=== PATIENT | female | born 1960 | race Caucasian/White ===

== ENCOUNTER 2016-08-07 09:56 | Inpatient (IN) ==
[2016-08-07] MEDS ORDERED: NITROGLYCERIN SL PRN (10:08)
[2016-08-07] MEDS ORDERED: ASPIRIN PO STA (10:08)
--- NOTE | 2016-08-07 10:33 | ED EKG INTERP ---
EKG Interpretation - EKG Time of EKG reading by physician:: 10:07 EKG Read and Signed by:: Emerson Hutchinson EKG Interpretation (*Must complete 3 of following elements*): Abnormal Rate: 105 Rhythm: sinus tachycardia with frequent premature ventricular complexes Comments: otherwise normal ECG Attestation - Scribe Verification/Attestation Scribe:: Tory Baxter Acting as Scribe for:: Emerson Hutchinson Scribe documention review:: This chart was documented by a scribe and accurately reflects the service the provider performed and the decisions made by the provider.
--- NOTE | 2016-08-07 11:15 | Diag Imaging Result Document ---
PROCEDURE NAME: CHEST-2 VIEWS - 08/07/2016 CHEST X-RAY 2 VIEWS, 08/07/2016: COMPARISON: 09/19/2015. FINDINGS: The lungs are normally expanded and clear. Heart size and mediastinal contours are normal. No pneumothorax or pleural effusion. IMPRESSION: Negative exam.
[2016-08-07 11:28] LABS: MANUAL DIFF NEEDED? NO
[2016-08-07 11:31] LABS: BASO% 0.6 % (0.0-0.8); EOS% 2.3 % (0.0-10.0); HEMATOCRIT 49.2 % (37.0-47.0); HEMOGLOBIN 16.8 g/dL (12.0-16.0); IMM GRAN# 0.18 X1000 (0.0-0.04); LYMPH# 4.22 X1000 (1.2-3.4); LYMPH% 23.8 % (20.5-51.1); MCH 33.2 PG (27-31); MCHC 34.1 g/dL (33-37); MCV 97.2 FL (81-99); MONO# 2.04 X1000 (0.11-0.59); MONO% 11.5 % (1.7-9.3); MPV 11.2 FL (7.4-10.4); NEUT% 60.8 % (42.2-75.2); PLT 393 X1000 (130-400); RBC 5.06 XMIL (4.2-5.4)
[2016-08-07] MEDS ORDERED: NS 1,000 ML IV ONE (11:35)
--- NOTE | 2016-08-07 11:50 | PROVIDER DOCUMENTATION ---
HPI-Syncope/Dizziness - General Chief Complaint: Chest Pain Stated Complaint: abnormal ekg Time Seen by Provider: 08/07/16 10:24 Source: patient Allergies/Adverse Reactions: Patient Allergies Allergy/AdvReac Type Severity Reaction Status Date / Time Sulfa (Sulfonamide Allergy Severe ANAPHYLAXIS Verified 08/07/16 11:36 Antibiotics) adhesive Allergy HIVES Verified 08/07/16 11:36 codeine Allergy halucinatio Verified 08/07/16 11:36 ns erythromycin base Allergy Unknown Verified 08/07/16 11:36 red dye Allergy Unknown Verified 08/07/16 11:36 iron dextran complex AdvReac Intermediate ITCHING Verified 08/07/16 11:36 [From Infed] Home Medications: Home Medication List Medication Instructions Recorded Confirmed Last Taken Type Levothyroxine [Synthroid] 175 microgm PO DAILY 06/05/12 08/07/16 09/19/15 History Trazodone [Desyrel] 150 mg PO QHS 06/05/12 08/07/16 09/18/15 History Hydrocodone/Acetaminophen [[place] 1 each PO BID PRN PRN 07/18/14 08/07/16 History 10-325 Tablet] Triamterene/Hctz [Dyazide] 1 each PO DAILY 09/19/15 08/07/16 09/18/15 History Ondansetron [Zofran Odt] 4 mg PO Q8H PRN PRN #20 tab.rapdis 06/17/16 08/07/16 Unknown Rx Clonazepam 0.5 mg PO BID 08/07/16 08/07/16 Unknown History Metaxalone [Metaxall] 800 mg PO DAILY 08/07/16 08/07/16 Unknown History - History of Present Illness-Syncope/Dizzy Nature of Presenting Problem: 56 y/o F with history of Menier's disease, heart palpitations, hiatal hernia, ventral hernia, hypogammaglobulinemia presents with lightheadedness, palpitations, and chest pain intermittently x 4 days. She describes chest pain as constant dull ache on the left side of the chest and under left breast that is worse when she feels palpitations. She also reports left jaw pain, nausea and diaphoresis intermittently. She has felt similar pain in the past which she has attributed to hiatal hernia. She began feeling weak and as if she was going to pass out on Friday while at work. She has chronic vertigo secondary to Meniere's disease but states this feels different. Symptoms are worse with exertion. She checked her HR and found it to range between 35 and 178. She has a history of palpitations and irregular heart rhythms and has been on tenormin in the past. Symptoms continued this morning which prompted her ER visit. She has had a cardiac cath years ago by Dr. Martin. She is unsure if stents were placed. She states she had a normal stress test around the same time. Her hypogammaglobulinemia is followed by her burrer hand, Dr. Christopher. She states her WBC is always around 17-18. Prior Episodes: reports: no prior history Timing: reports: still present Position/Activity at time of episode: reports: activity Loss of Consciousness: no loss of consciousness Current Symptoms: reports: chest pain, lightheaded Recently Seen Here or By Another Healthcare Provider: No - Dizziness Dizziness Related Current/Associated Symptoms: reports: lightheaded Review of Systems - Adult - REVIEW OF SYSTEMS - ADULT Constitutional: reports: no symptoms reported. denies: chills, fever Eyes: reports: no symptoms reported. denies: decreased vision, blurred vision, double vision Ears, Nose, Mouth & Throat: reports: no symptoms reported Cardiovascular: reports: see HPI Respiratory: reports: no symptoms reported. denies: cough, shortness of breath , wheezing Gastrointestinal: reports: nausea. denies: abdominal pain Genitourinary: reports: no symptoms reported. denies: dysuria, hematuria Musculoskeletal: reports: no symptoms reported. denies: muscle aches, neck pain Integumentary: reports: no symptoms reported. denies: itching, rash Neurological: reports: dizziness/vertigo (chronic secondary to meniere's). denies: headache/migraines, loss of balance, numbness, seizure, slurred speech, syncope, tremors Psychiatric: reports: no symptoms reported Endocrine: reports: no symptoms reported Hematologic/Lymphatic: reports: no symptoms reported Allergic/Immunologic: reports: no symptoms reported All Other Systems: Reviewed and Negative Past History - Adult - PAST MEDICAL HISTORY-ADULT Review of Records: reports: Nursing Assessment Review, Medications Reviewed Major Childhood Illnesses: reports: denies history Cardiovascular: reports: HTN Respiratory: reports: asthma Endocrine/Immune: reports: thyroid disorder - PRIOR SURGERIES/PROCEDURES Surgical/Procedure History: reports: cholecystectomy - IMMUNIZATION STATUS Childhood Immunizations: See Nurse Assessment Flu Vaccine: See Nurse Assessment Physical Exam-General - PHYSICAL EXAM-ADULT Initial Vital Signs Reviewed: Yes - CONSTITUTIONAL General Appearance: appears well, alert, no apparent distress - EYES Eyes: PERRL/EOMI, pink conjunctivae - HEAD, EARS, NOSE, MOUTH & THROAT HENMT: normocephalic/atraumatic, moist mucous membranes, normal ENT inspection - NECK Neck: non-tender, full range of motion, supple - RESPIRATORY Respiratory: chest non-tender, lungs clear, normal breath sounds, no pleuratic chest pain, no respiratory distress, no accessory muscle use - CARDIOVASCULAR Cardiovascular: normal peripheral pulses, regular rate, rhythm, no edema, no gallop, no JVD, no murmur - GASTROINTESTINAL (ABDOMEN) Abdominal Exam: normal bowel sounds, non tender, soft, other (ventral hernia) - LYMPHATIC Lymphatic: no adenopathy - MUSCULOSKELETAL Back Exam: normal inspection, no CVA tenderness, no vertebral tenderness Extremity: normal range of motion, non-tender, normal inspection - SKIN Integumentary: normal color, normal turgor, warm/dry - NEUROLOGIC Neurologic: grossly normal, no motor/sensory deficits - PSYCHIATRIC Psych/Mental Status: normal mood/affect, normal thought content, normal thought process, oriented x 3 Progress - PLAN OF CARE/RESULTS Progress/Plan/Lab Results: Laboratory Tests 08/07/16 08/07/16 08/07/16 11:20 11:20 11:20 WBC 17.71 H RBC 5.06 Hgb 16.8 H Hct 49.2 H MCV 97.2 MCH 33.2 H MCHC 34.1 RDW Std Deviation 14.2 Plt Count 393 MPV 11.2 H Immature Gran % (Auto) 1.0 H Neut % (Auto) 60.8 Lymph % (Auto) 23.8 Evangeline % (Auto) 11.5 H Eos % (Auto) 2.3 Baso % (Auto) 0.6 Immature Gran # (Auto) 0.18 H Neut # (Auto) 10.76 H Lymph # (Auto) 4.22 H Evangeline # (Auto) 2.04 H Eos # (Auto) 0.40 Baso # (Auto) 0.11 PT INR PTT (Actin FS) D-Dimer 0.42 Sodium 140 Potassium 4.2 Chloride 100 Carbon Dioxide 30 Anion Gap 10 BUN 11 Creatinine 0.8 Estimated GFR/1.73 m2 > 60 BUN/Creatinine Ratio 14 Glucose 123 H Calculated Osmolality 280 Calcium 10.2 Magnesium 2.1 Total Bilirubin 0.71 AST 26 ALT 25 Alkaline Phosphatase 130 H Creatine Kinase 63 Troponin T Ltx-N-Foiiedeklkb Pept Total Protein 8.3 Albumin 4.0 Globulin 4.3 Albumin/Globulin Ratio 0.9 TSH Free T4 08/07/16 08/07/16 08/07/16 11:20 11:20 11:20 WBC RBC Hgb Hct MCV MCH MCHC RDW Std Deviation Plt Count MPV Immature Gran % (Auto) Neut % (Auto) Lymph % (Auto) Evangeline % (Auto) Eos % (Auto) Baso % (Auto) Immature Gran # (Auto) Neut # (Auto) Lymph # (Auto) Evangeline # (Auto) Eos # (Auto) Baso # (Auto) PT 10.2 INR 1.00 PTT (Actin FS) 23.6 D-Dimer Sodium Potassium Chloride Carbon Dioxide Anion Gap BUN Creatinine Estimated GFR/1.73 m2 BUN/Creatinine Ratio Glucose Calculated Osmolality Calcium Magnesium Total Bilirubin AST ALT Alkaline Phosphatase Creatine Kinase Troponin T < 0.010 Wbt-G-Lvhevsspqxd Pept 19 Total Protein Albumin Globulin Albumin/Globulin Ratio TSH Free T4 08/07/16 11:20 WBC RBC Hgb Hct MCV MCH MCHC RDW Std Deviation Plt Count MPV Immature Gran % (Auto) Neut % (Auto) Lymph % (Auto) Evangeline % (Auto) Eos % (Auto) Baso % (Auto) Immature Gran # (Auto) Neut # (Auto) Lymph # (Auto) Evangeline # (Auto) Eos # (Auto) Baso # (Auto) PT INR PTT (Actin FS) D-Dimer Sodium Potassium Chloride Carbon Dioxide Anion Gap BUN Creatinine Estimated GFR/1.73 m2 BUN/Creatinine Ratio Glucose Calculated Osmolality Calcium Magnesium Total Bilirubin AST ALT Alkaline Phosphatase Creatine Kinase Troponin T Aqd-I-Qfridhupllg Pept Total Protein Albumin Globulin Albumin/Globulin Ratio TSH 1.79 Free T4 1.27 Orders Category Date Time Status Cardiac Monitoring DIRECTED Care 08/07/16 10:08 Active Orthostatic Vital Signs NOW Care 08/07/16 11:30 Active Saline Loc NOW Care 08/07/16 10:08 Active CHEST-2 VIEWS [RAD] Stat Exams 08/07/16 10:08 Completed CBC WITH ELECTRONIC DIFF [HEME] Stat Lab 08/07/16 11:20 Completed CK PROFILE [SP CHEM] Stat Lab 08/07/16 11:20 Completed COMPREHENSIVE METABOLIC PANEL [CHEM] Stat Lab 08/07/16 11:20 Completed D-DIMER [CHEM] Stat Lab 08/07/16 11:20 Completed FREE T4 Stat Lab 08/07/16 11:20 Completed MAGNESIUM [CHEM] Stat Lab 08/07/16 11:20 Completed PRO B-NATRIURETIC PEPTIDE Stat Lab 08/07/16 11:20 Completed PROTIME WITH INR [COAG] Stat Lab 08/07/16 11:20 Completed PTT [COAG] Stat Lab 08/07/16 11:20 Completed TROPONIN T Stat Lab 08/07/16 11:20 Completed TSH Stat Lab 08/07/16 11:20 Completed 0.9% Sodium Chloride Inj [Ns] 1,000 ml Med 08/07/16 11:35 Discontinued IV 999 mls/hr Aspirin Med 08/07/16 10:08 Discontinued 325 mg PO STAT STA Nitroglycerin Sl [Nitroglycerin] Med 08/07/16 10:08 Active 0.4 mg SL Q5M PRN PRN EKG [EKG] Stat Ther 08/07/16 10:01 Ordered EKG [EKG] Stat Ther 08/07/16 10:08 Ordered Vital Signs Temp Pulse Pulse Pulse Pulse Resp BP 08/07/16 14:10 94 H 20 120/63 08/07/16 12:32 96 H 93 H 89 08/07/16 10:02 98.3 F 105 H 16 119/61 BP BP BP Pulse Ox 08/07/16 14:10 95 08/07/16 12:32 134/57 126/83 117/72 08/07/16 10:02 100 Sulfa (Sulfonamide Antibiotics) Allergy (Severe, Verified 08/07/16 11:36) ANAPHYLAXIS adhesive Allergy (Verified 08/07/16 11:36) HIVES tape causes rash codeine Allergy (Verified 08/07/16 11:36) halucinations erythromycin base Allergy (Verified 08/07/16 11:36) Unknown red dye Allergy (Verified 08/07/16 11:36) Unknown iron dextran complex [From Infed] Adverse Reaction (Intermediate, Verified 08/07 11:36) ITCHING Levothyroxine [Synthroid] 175 microgm PO DAILY 06/05/12 Trazodone [Desyrel] 150 mg PO QHS 06/05/12 Hydrocodone/Acetaminophen [[place] 10-325 Tablet] 1 each PO BID PRN PRN 07/18/14 Triamterene/Hctz [Dyazide] 1 each PO DAILY 09/19/15 Ondansetron [Zofran Odt] 4 mg PO Q8H PRN PRN #20 tab.rapdis 06/17/16 Clonazepam 0.5 mg PO BID 08/07/16 Metaxalone [Metaxall] 800 mg PO DAILY 08/07/16 Laboratory 08/07/16 08/07/16 08/07/16 11:20 11:20 11:20 WBC RBC Hgb Hct MCV MCH MCHC RDW Std Deviation Plt Count MPV Immature Gran % (Auto) Neut % (Auto) Lymph % (Auto) Evangeline % (Auto) Eos % (Auto) Baso % (Auto) Immature Gran # (Auto) Neut # (Auto) Lymph # (Auto) Evangeline # (Auto) Eos # (Auto) Baso # (Auto) PT 10.2 INR 1.00 PTT (Actin FS) 23.6 D-Dimer Sodium Potassium Chloride Carbon Dioxide Anion Gap BUN Creatinine Estimated GFR/1.73 m2 BUN/Creatinine Ratio Glucose Calculated Osmolality Calcium Magnesium Total Bilirubin AST ALT Alkaline Phosphatase Creatine Kinase Troponin T < 0.010 Grv-Z-Qpsqoeosawe Pept Total Protein Albumin Globulin Albumin/Globulin Ratio TSH 1.79 Free T4 1.27 08/07/16 08/07/16 08/07/16 11:20 11:20 11:20 WBC RBC Hgb Hct MCV MCH MCHC RDW Std Deviation Plt Count MPV Immature Gran % (Auto) Neut % (Auto) Lymph % (Auto) Evangeline % (Auto) Eos % (Auto) Baso % (Auto) Immature Gran # (Auto) Neut # (Auto) Lymph # (Auto) Evangeline # (Auto) Eos # (Auto) Baso # (Auto) PT INR PTT (Actin FS) D-Dimer 0.42 Sodium 140 Potassium 4.2 Chloride 100 Carbon Dioxide 30 Anion Gap 10 BUN 11 Creatinine 0.8 Estimated GFR/1.73 m2 > 60 BUN/Creatinine Ratio 14 Glucose 123 H Calculated Osmolality 280 Calcium 10.2 Magnesium 2.1 Total Bilirubin 0.71 AST 26 ALT 25 Alkaline Phosphatase 130 H Creatine Kinase 63 Troponin T Qor-I-Afdfzakhifb Pept 19 Total Protein 8.3 Albumin 4.0 Globulin 4.3 Albumin/Globulin Ratio 0.9 TSH Free T4 08/07/16 11:20 WBC 17.71 H RBC 5.06 Hgb 16.8 H Hct 49.2 H MCV 97.2 MCH 33.2 H MCHC 34.1 RDW Std Deviation 14.2 Plt Count 393 MPV 11.2 H Immature Gran % (Auto) 1.0 H Neut % (Auto) 60.8 Lymph % (Auto) 23.8 Evangeline % (Auto) 11.5 H Eos % (Auto) 2.3 Baso % (Auto) 0.6 Immature Gran # (Auto) 0.18 H Neut # (Auto) 10.76 H Lymph # (Auto) 4.22 H Evangeline # (Auto) 2.04 H Eos # (Auto) 0.40 Baso # (Auto) 0.11 PT INR PTT (Actin FS) D-Dimer Sodium Potassium Chloride Carbon Dioxide Anion Gap BUN Creatinine Estimated GFR/1.73 m2 BUN/Creatinine Ratio Glucose Calculated Osmolality Calcium Magnesium Total Bilirubin AST ALT Alkaline Phosphatase Creatine Kinase Troponin T Rbg-N-Kndavdpdayl Pept Total Protein Albumin Globulin Albumin/Globulin Ratio TSH Free T4 Patient has had intermittent chest pain and lightheadedness throughout ER stay. Vitals have been stable. Trop and EKG negative for ischema. After calls to both Dr. Rea' and Dr. Martin's offices we are unable to determine if patient has history of cardiac stenting with her cath. She has not had cardiac eval in years. Discussed patient with Dr. Hutchinson will admit for CP obs. - XRAY 1 XRAY Study: Chest XRAY Interpretation: NAD - CONSULTS/PCP/HOSPITALIST Notification #1 *Consult/PCP/Hospitalist*: Dr. Scales Time Discussed: 17:20 Consult Disposition: Admit Departure - Departure Time of Disposition Order: 16:28 DIAGNOSIS: Chest pain, Palpitations, Lightheaded Disposition: ADMITTED INPATIENT 09 Certified Medical Emergency: Emergent Condition: Stable Referrals: Tyrel Rea MD [Primary Care Provider] - Attestation - Physician/ JOSE Attestation Patient care was provided by Advanced Practice Provider:: Yes Advanced Practice Provider:: Stacey Arredondo Advanced Practice Provider documentation review:: The Mid-level provider documentation, treatment plan and medical decision making was reviewed by the physician who agrees with all treatment and medical decision making by the MLP.
[2016-08-07 11:55] LABS: PROTIME 10.2 Seconds (9.2-11.7); PTT 23.6 Seconds (22.0-36.0)
[2016-08-07 12:09] LABS: AGAP 10; ALKALINE PHOSPHATASE 130 U/L (32-104); BUN 11 mg/dL (8-22); CALCIUM 10.2 mg/dL (8.8-10.2); CHLORIDE 100 mmol/L (98-107); CK PROFILE 63 U/L (24-173); COSMO 280; GOT 26 U/L (10-30); GPT 25 U/L (10-36); MAGNESIUM 2.1 mg/dL (1.5-2.7); POTASSIUM 4.2 mmol/L (3.5-5.1); SODIUM 140 mmol/L (136-145); TCO2 30 mmol/L (25-35); TOTAL BILIRUBIN 0.71 mg/dL (0.20-1.00); TOTAL PROTEIN 8.3 g/dL (6.3-8.3)
[2016-08-07 12:34] LABS: FREE T4 1.27 ng/dL (0.93-1.70)
[2016-08-07 17:36] LABS: AMYLASE 30 U/L (20-200); LIPASE 22 U/L (13-60)
--- NOTE | 2016-08-07 18:39 | HISTORY AND PHYSICAL ---
PRIMARY CARE PROVIDER: Dr. Tyrel Rea. CHIEF COMPLAINT: Feels like she is going to pass out, having weakness and chest pain. HISTORY OF PRESENT ILLNESS: Ms. Murray is a 56-year-old female with a history of frequent PVCs, Meniere's disease, obstructive sleep apnea, hypothyroidism and hypogammaglobinemia who states that back in the end of May she had a bout of gastroenteritis and has pretty much felt bad ever since. On Friday started having chest pain that radiated up her left neck and to her left scapula with associated diaphoresis and nausea that she states lasted about 45 minutes. She felt like this was possibly from her hiatal hernia. She woke up Friday with a feeling of fullness and pain through the left side of her neck that just never subsided. She took [place] which helped a little bit. She states during this time, that she checked her pulse rate and she states that it ranged anywhere from 35-175. She continues to have the pain that is in her left neck and that is what brought her to the ER. Currently she states she is pain free in her neck. No chest pain at this time. She states that she does not necessarily have shortness of breath but she does feel like she has to concentrate on breathing in deep. She denies orthopnea and states that she occasionally she has swelling in her lower extremities. Denies any recent weight gain. Other complaints include left upper quadrant abdominal pain that she has had for about a week. She sees Dr. Loya for her hypoglobulinemia who ordered an abdominal pelvic CT yesterday. Amylase and lipase are negative. She also complains of some lightheadedness with her head spinning but she states this feels different than her Meniere's disease. She denies passing out. Denies fevers, chills, or diarrhea. We will admit her to the medical floor. She does have frequent PVCs noted on her bedside telemetry and given her complaints of chest pains, we will go ahead and consult Cardiology. Do an echocardiogram, serial cardiac enzymes. Currently 1st set is negative. EKG is negative for ST elevations. Will also go ahead and do an echocardiogram and repeat EKG in the morning. PAST MEDICAL HISTORY: Hypothyroidism, hypogammaglobulinemia, obstructive sleep apnea. She does not wear her CPAP. 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 She may be in the process of rule out for lymphoma. SURGICAL HISTORY: Splenectomy, bladder tack, left lymph node removal and a cholecystectomy. SOCIAL HISTORY: Denies tobacco. Admits to occasional alcohol use and denies illicit drug use. 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 FAMILY HISTORY: Mother had Andree's. Father had diabetes type 1. Sister had lupus. REVIEW OF SYSTEMS: Fourteen point review of systems were complete and all were negative except for those mentioned in above HPI. ALLERGIES: Sulfa, adhesive, codeine, erythromycin, red dye. HOME MEDICATIONS: She states she takes Dexilant. Desyrel 150 mg p.o. nightly. Synthroid 175 mcg p.o. daily. [place] 10s 1 tab p.o. twice daily as needed. Dyazide 1 tab p.o. daily. Clonazepam 0.5 mg p.o. twice daily. Metaxalone 800 mg p.o. daily. Zofran 4 mg every 8 hours as needed. LABORATORY DATA: White blood cells 17,000, hemoglobin 16, hematocrit 49, platelet count 393,000. INR 1.0. PTT 23.6, D-dimer 0.42. Sodium 140, potassium 4.2, BUN 11, creatinine 0.8, glucose 123. Calcium 10.2, magnesium 2.1, bilirubin 0.71. AST 26, ALT 25. CK 63. Troponins less than 0.01. ProBNP 19. Amylase 30 and lipase 22. TSH 1.79. T4 is 1.27. IMAGING: Chest x-ray negative. EKG, sinus tachycardia with frequent PVCs, rate of 105. No ST elevation noted. VITAL SIGNS: Temperature is 98.3 degrees, heart rate 94, respiratory rate 20, blood pressure 120/63, O2 saturation 95% on room air. She had orthostatics. Sitting heart rate 96, blood pressure 134/57. Standing heart rate 93, blood pressure 126/83. Supine heart rate 89, blood pressure 117/72. She is 5 feet 6 inches, 280 pounds. GENERAL: Ms. Murray is a 56-year-old morbidly obese, female in no acute distress. Able to answer questions appropriately. HEENT: Atraumatic, normocephalic. Pupils equal, round, reactive to light. Extraocular movements intact. NECK: No JVD or carotid bruits noted. CARDIOVASCULAR: S1, S2. Irregular rate and rhythm with frequent PVCs. No rubs , gallops murmurs. PULMONARY: Clear to auscultation. Bilateral breath sounds. No accessory muscle use or work of breathing noted. GI: Soft, tender in the left upper quadrant. PHYSICAL EXAMINATION: GI: Soft, obese. Left upper quadrant tenderness. Positive bowel sounds x4. EXTREMITIES: She had trace edema lower extremities, but essentially great pulses at 2+. Dorsalis pedal, 2+ radial pulses. NEUROLOGIC: Alert and oriented x4. Moves all extremities equally. ASSESSMENT AND PLAN: 1. Atypical chest pain. Rule out acute coronary syndrome. Currently cardiac enzymes are negative and electrocardiogram is without ST elevations, but she does show that she has frequent premature ventricular contractions that are unifocal that is causing her heart rate to be irregular. She will have couplets and singlets. I will consult Cardiology. Do a stress test and echocardiogram for further work up. She could possibly benefit from a beta darrin given her frequent premature ventricular contractions. 2. Hypothyroidism. TSH, T4 is normal. Continue Synthroid. 3. Hypogammaglobulinemia. Followed by Dr. Loya as outpatient. 4. Meniere's disease. She has had some spells of feeling dizzy and lightheaded that she states she feel is not similar to her Meniere's disease. 5. Chronic leukocytosis. She is currently being ruled out for lymphoma by Dr. Loya. She is status post splenectomy. 6. Gastroesophageal reflux disease. Continue Dexilant. 7. Deep venous thrombosis prophylaxis. Lovenox. 8. Obstructive sleep apnea. Does not wear CPAP. Dictated by VIVI Castillo for Willam Scales MD Seen and agree with the above evaluation and plan. Chest pain Near syncope at home Frequent PVCs Morbid Obesity For cardiac risk stratification MTDD
[2016-08-07] MEDS ORDERED: TYLENOL PO PRN (20:23)
[2016-08-07] MEDS ORDERED: ZOFRAN IV PRN (20:23)
[2016-08-07] MEDS: NS 1,000 ML IV SCH (21:44)
[2016-08-07] MEDS: DESYREL PO SCH (21:44)
[2016-08-07] MEDS: KLONOPIN PO SCH (21:48)
[2016-08-08] MEDS: SYNTHROID PO SCH (06:01)
[2016-08-08 07:13] LABS: MANUAL DIFF NEEDED? NO
[2016-08-08 07:23] LABS: BASO% 0.6 % (0.0-0.8); EOS# 0.73 X1000 (0.0-0.7); EOS% 4.6 % (0.0-10.0); HEMATOCRIT 45.7 % (37.0-47.0); HEMOGLOBIN 15.4 g/dL (12.0-16.0); IMM GRAN# 0.13 X1000 (0.0-0.04); IMM GRAN% 0.8 % (0.0-0.5); LYMPH# 4.39 X1000 (1.2-3.4); LYMPH% 27.5 % (20.5-51.1); MCH 33.1 PG (27-31); MCHC 33.7 g/dL (33-37); MCV 98.3 FL (81-99); MONO% 13.1 % (1.7-9.3); MPV 11.8 FL (7.4-10.4); NEUT% 53.4 % (42.2-75.2); PLT 331 X1000 (130-400); RBC 4.65 XMIL (4.2-5.4)
[2016-08-08 07:31] LABS: INR 1.02; PROTIME 10.4 Seconds (9.2-11.7)
[2016-08-08 07:43] LABS: AGAP 15; ALBUMIN 3.2 g/dL (3.5-5.0); ALKALINE PHOSPHATASE 102 U/L (32-104); BUN 11 mg/dL (8-22); CALCIUM 8.7 mg/dL (8.8-10.2); CHLORIDE 103 mmol/L (98-107); COSMO 284; GOT 19 U/L (10-30); GPT 18 U/L (10-36); POTASSIUM 3.9 mmol/L (3.5-5.1); SODIUM 142 mmol/L (136-145); TCO2 24 mmol/L (25-35); TOTAL PROTEIN 6.7 g/dL (6.3-8.3)
[2016-08-08 07:48] LABS: PTT 25.1 Seconds (22.0-36.0)
--- NOTE | 2016-08-08 07:54 | EKG Report ---
Test Performed on : 08/08/2016 07:13:09 AM Test Reason : chest pain Blood Pressure : / mmHG Vent. Rate : 081 BPM Atrial Rate : 081 BPM P-R Int : 112 ms QRS Dur : 078 ms QT Int : 590 ms P-R-T Axes : 000 020 034 degrees QTc Int : 685 ms Sinus rhythm. with fusion complexes ST & T wave abnormality, consider anterolateral ischemia Prolonged QT Abnormal ECG When compared with ECG of 07-AUG-2016 10:07, (Unconfirmed) fusion complexes are now present premature ventricular complexes. are no longer present ST now depressed in Lateral leads T wave inversion now evident in Anterolateral leads QT has lengthened Confirmed by Keira FRANCOIS, Asif Tomlin ([id number]) on 08/10/2016 1:14:16 PM
[2016-08-08] MEDS ORDERED: LEXISCAN ONE (09:43)
[2016-08-08] MEDS ORDERED: AMINOPHYLLINE ONE (10:03)
[2016-08-08] MEDS: DYAZIDE PO SCH (12:04)
[2016-08-08] MEDS: KLONOPIN PO SCH ×2 (12:04→23:48)
[2016-08-08] MEDS: DEXILANT PO SCH (12:04)
[2016-08-08] MEDS: SKELAXIN PO SCH (12:07)
--- NOTE | 2016-08-08 14:38 | Diag Imaging Result Document ---
PROCEDURE NAME: MYOCARDIAL PERF SCAN, STR/REST - 08/08/2016 LEXISCAN CARDIOLITE STRESS TEST: Lexiscan was infused per standard protocol. Patient had neck discomfort during Lexiscan infusion relieved with requiring 125 mg of aminophylline given intravenously. The stress electrocardiogram was negative for ischemia. PVCs were noted. There was no ventricular tachycardia. 15.8 mCi of Cardiolite was injected for the resting phase, 45.9 mCi of Cardiolite was injected for the stress phase. Gated SPECT images were obtained in standard views. Images revealed significant chest wall attenuation. There is moderate-size reversible perfusion defect in the anterior wall. There is a moderate-sized moderate grade, reversible perfusion defect in the left ventricular apex diagnostic of ischemia. Left ventricular ejection fraction by gated SPECT was 66%. CONCLUSIONS: 1. Patient had chest discomfort during Lexiscan infusion requiring 125 mg of aminophylline. 2. Stress electrocardiogram was negative for ischemia. PVCs were noted. 3. Myocardial perfusion images revealed moderate grade, moderate size reversible perfusion defect in the anterior wall and in the apex diagnostic of ischemia. 4. Left ventricular ejection fraction by gated SPECT was 66%.
--- NOTE | 2016-08-08 15:04 | CONSULTATION ---
DATE OF CONSULTATION: 08/08/2016 IMPRESSION: 1. Palpitations possibly related to ventricular ectopy. Cannot exclude paroxysmal atrial fibrillation. 2. Recurrent chest pain with mixed features for possible myocardial ischemia. Pharmacologic stress myocardial perfusion study pending. 3. History of previous negative coronary angiography approximately 6 years ago. 4. Obesity. 5. Hypothyroidism. 6. Obstructive sleep apnea. 7. Fibromyalgia. 8. Chronic leukocytosis. 9. Status post splenectomy. RECOMMENDATIONS: 1. Telemetry observation. 2. Follow up noninvasive studies including echocardiography and stress myocardial imaging. 3. May consider pursuit of cardiac catheterization/coronary angiography depending on results of stress myocardial perfusion study. 4. Future consideration to be given to bariatric surgery. This was discussed with the patient and it actually has been considered in the past, but her health insurance would not cover it at that time. HISTORY: This 56-year-old, white female, with past history of obesity, chronic leukocytosis, hypothyroidism and obstructive sleep apnea was admitted to the emergency room for evaluation of palpitations and recent chest discomfort. Her primary complaint bringing her into the hospital today was that of palpitations which she has been experiencing for 2 or 3 days ever since she had a chest, abdominal and pelvis CT scan. The latter was obtained to evaluate suspicion of possible lymphoma related to her chronic leukocytosis. She also recalls episode of chest discomfort characterized as crushing substernal chest discomfort this past Friday, 5 days ago. Discomfort occurred in the afternoon after she was putting away groceries in the kitchen and lasted perhaps 45 minutes. She has had chest symptoms in the past, and recalls a previous cardiac catheterization and coronary angiography study about 6 years ago which revealed no significant coronary obstructive lesions. PAST MEDICAL HISTORY: 1. Obesity. 2. Obstructive sleep apnea. 3. Hypothyroidism. 4. Fibromyalgia. 5. Chronic leukocytosis. PAST SURGICAL HISTORY: Splenectomy, cholecystectomy, lymph node removal and bladder tack. ALLERGIES: She is allergic or intolerant to sulfa, codeine, red dye and erythromycin. MEDICATIONS: Prior to admission as listed. 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 She does not smoke nor use illicit drugs. She drinks occasional alcoholic beverage. FAMILY HISTORY: Negative for premature coronary disease. REVIEW OF SYSTEMS: Pulmonary: Negative. Gastrointestinal: Negative. Constitutional: Negative. The remainder of review of systems negative with 14 systems reviewed. PHYSICAL EXAMINATION: General: Obese, middle-aged female in no distress. Vital Signs: Blood pressure 117/55, heart rate 88 and regular, weight 280 pounds. HEENT Exam: Extraocular movements intact. Mucous membranes were moist. Neck: Supple without jugular venous distention. There are no carotid bruits. Chest: Clear to auscultation. Cardiac exam: Reveals a regular rate and rhythm without appreciable murmur or gallop. Abdomen: Soft, nontender. Bowel sounds are normal. Extremities: Without edema. Neurologic Exam: Reveals her to be alert, fully oriented. Speech is fluent. She moves all 4 extremities equally well. Skin: Warm, dry. Psych: Exam reveals mood to be appropriate. DIAGNOSTIC DATA: ECG demonstrates sinus rhythm and occasional premature ventricular complex.
[2016-08-08] MEDS ORDERED: LOPRESSOR PO ONE (15:08)
--- NOTE | 2016-08-08 16:16 | PROGRESS NOTE ---
DATE: 08/08/2016 Today Ms. Murray referred to be doing fine. She still referred to have had some neck pain, upper chest discomfort radiating to the left arm this morning and also became slightly dizzy. OBJECTIVE: Vital signs: Blood pressure 127/53, pulse of 91, respirations 18, temperature 98.2 degrees. General: Ms. Murray is a 56-year-old female. She was in bed. She is morbidly obese. BMI is 45.2. Was not in any distress. HEENT: Mucosa is pink and moist. Anicteric. Acyanotic. Neck: Supple. Chest: Good air entry bilaterally. No crepitations. No rhonchi. Cardiovascular: Regular rate and rhythm. There are occasional extrasystole beats. No murmurs, no rubs. Abdomen: Distended but nontender. Bowel sounds are present. There is no hepatosplenomegaly. Extremities: No pedal edema. 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 There is no focal neurological deficit. LABORATORY DATA: WBC is 15.98, hemoglobin is 15.4, platelet count of 331,000. Chemistry: Sodium is 142, potassium is 3.9, chloride is 103, bicarb is 24. A C-reactive protein high sensitivity is 3.94 which is extremely high. Patient had a nuclear perfusion scan which shows moderate grade, moderate size reversible perfusion defect in the anterior wall and in the apex diagnostic of ischemia. ASSESSMENT: 1. Atypical chest pain with very abnormal stress test. I think patient will eventually need a left heart catheterization but I will defer the recommendation to our Cardiology colleagues who are also on board. 2. Near-syncope at home. I think this is probably related to the frequent PVCs that she has. The patient has been started on beta darrin. 3. Hypothyroidism. Will continue with the Synthroid. 4. History of Meniere's disease. 5. Chronic leukocytosis. Patient follows up with Dr. Loya. At one point there was a thought that she probably might have a low grade lymphoma. She is status post splenectomy. 6. Obstructive sleep apnea. GENERAL PLAN: Ms. Murray is stable. She does have a very abnormal stress test today so will be waiting on Cardiology to give some further recommendation as to how they plan to proceed. The patient has been started on aspirin, beta darrin, and statin.
[2016-08-08] MEDS: NORCO-10 PO PRN (17:20)
[2016-08-08] MEDS ORDERED: LIPITOR PO SCH (21:00)
[2016-08-08] MEDS ORDERED: LOVENOX SUBQ SCH (21:00)
[2016-08-08] MEDS ORDERED: LOPRESSOR PO SCH (21:00)
[2016-08-08] MEDS: NS 1,000 ML IV SCH (22:15)
[2016-08-08] MEDS ORDERED: NS 500 ML IV ONE (22:44)
[2016-08-08] MEDS: DESYREL PO SCH (23:49)
[2016-08-09] MEDS: NS 1,000 ML IV SCH ×2 (04:23→13:06)
[2016-08-09 06:40] LABS: MANUAL DIFF NEEDED? NO
[2016-08-09 06:44] LABS: BASO% 0.8 % (0.0-0.8); EOS# 0.72 X1000 (0.0-0.7); EOS% 4.3 % (0.0-10.0); HEMATOCRIT 45.9 % (37.0-47.0); HEMOGLOBIN 15.6 g/dL (12.0-16.0); IMM GRAN# 0.21 X1000 (0.0-0.04); IMM GRAN% 1.2 % (0.0-0.5); LYMPH# 4.91 X1000 (1.2-3.4); MCH 33.1 PG (27-31); MCV 97.5 FL (81-99); MONO# 2.03 X1000 (0.11-0.59); MPV 11.5 FL (7.4-10.4); NEUT% 52.7 % (42.2-75.2); PLT 348 X1000 (130-400); RBC 4.71 XMIL (4.2-5.4)
[2016-08-09 07:14] LABS: AGAP 12; ALBUMIN 3.7 g/dL (3.5-5.0); ALKALINE PHOSPHATASE 114 U/L (32-104); BUN 9 mg/dL (8-22); CALCIUM 9.1 mg/dL (8.8-10.2); CHLORIDE 104 mmol/L (98-107); COSMO 284; GOT 18 U/L (10-30); GPT 18 U/L (10-36); POTASSIUM 3.9 mmol/L (3.5-5.1); SODIUM 142 mmol/L (136-145); TCO2 26 mmol/L (25-35); TOTAL BILIRUBIN 0.44 mg/dL (0.20-1.00); TOTAL PROTEIN 6.7 g/dL (6.3-8.3)
[2016-08-09 07:20] LABS: HEMOGLOBIN A1C 5.6 % (4.8-6.0)
--- NOTE | 2016-08-09 07:23 | EKG Report ---
Test Performed on : 08/08/2016 10:55:34 PM Test Reason : eval Blood Pressure : / mmHG Vent. Rate : 081 BPM Atrial Rate : 081 BPM P-R Int : 198 ms QRS Dur : 092 ms QT Int : 414 ms P-R-T Axes : 037 027 028 degrees QTc Int : 480 ms Sinus rhythm. with occasional premature ventricular complexes. Prolonged QT Abnormal ECG When compared with ECG of 08-AUG-2016 07:13, (Unconfirmed) fusion complexes are no longer present premature ventricular complexes. are now present ST no longer depressed in Anterolateral leads T wave inversion no longer evident in Anterolateral leads QT has shortened Confirmed by Keira FRANCOIS, Asif Tomlin ([id number]) on 08/10/2016 1:15:22 PM
[2016-08-09 07:40] VITALS: BP 136/53
[2016-08-09] MEDS ORDERED: HEPARIN 1000 UNITS/NS 1,000 ML ONE (08:27)
[2016-08-09] MEDS ORDERED: ASPIRIN PO SCH (09:00)
[2016-08-09] MEDS: DEXILANT PO SCH (09:19)
[2016-08-09] MEDS: SKELAXIN PO SCH (09:19)
[2016-08-09] MEDS: SYNTHROID PO SCH ×2 (09:19→11:34)
[2016-08-09] MEDS: KLONOPIN PO SCH (09:19)
[2016-08-09] MEDS: DYAZIDE PO SCH (09:20)
[2016-08-09] MEDS ORDERED: VERSED ONE (09:20)
[2016-08-09] MEDS ORDERED: MORPHINE ONE (09:21)
[2016-08-09] MEDS: NORCO-10 PO PRN (11:33)
--- NOTE | 2016-08-09 11:38 | EKG Report ---
Test Performed on : 08/09/2016 11:29:38 AM Test Reason : Heart Cath Blood Pressure : / mmHG Vent. Rate : 080 BPM Atrial Rate : 080 BPM P-R Int : 192 ms QRS Dur : 090 ms QT Int : 396 ms P-R-T Axes : 050 022 023 degrees QTc Int : 456 ms Normal sinus rhythm. Normal ECG When compared with ECG of 08-AUG-2016 22:55, (Unconfirmed) premature ventricular complexes. are no longer present Confirmed by Keira FRANCOIS, Asif Tomlin ([id number]) on 08/10/2016 1:15:57 PM
--- NOTE | 2016-08-09 13:12 | ECHO REPORT ---
ORDER DATE: 08/08/2016 INTERPRETING PHYSICIAN: Dr. Jonathan Atkinson ECHOCARDIOGRAPHIC MEASUREMENTS: Interventricular septum: 1.1 cm. Left ventricular posterior wall: 1.3 cm. Diastolic diameter: 5.0 cm. Left atrium: 3.4 cm. Aortic root: 3.3 cm. SUMMARY OF THE 2-DIMENSIONAL IMAGIN. Normal left ventricular cavity size. Estimated ejection fraction of 60%. 2. Aortic valve leaflets were trileaflet. Mitral valve was normal. Tricuspid valve was normal. Pulmonic valve was normal. 3. Peak velocity across the aortic valve less than 2 m/sec. There is no aortic stenosis or regurgitation. Technically suboptimal study. Poor apical windows. 4. There is trace mitral regurgitation. Mild tricuspid regurgitation. Peak velocity across the tricuspid valve was 1.6 m/sec. 5. Normal left ventricular cavity size. Estimated ejection fraction of 60%. 6. There is no pericardial effusion or obvious intracardiac mass or thrombus.
--- NOTE | 2016-08-09 15:50 | CARDIAC CATH REPORT ---
PROCEDURE NAME: MYOCARDIAL PERF SCAN, STR/REST - 08/08/2016 PROCEDURE PERFORMED: Left heart catheterization with selective coronary angiography. INDICATIONS: Episodic chest discomfort suspicious for possible angina with abnormal stress myocardial perfusion study suggesting inducible and ischemia in the distribution of left anterior descending coronary artery. ENTRY SITE: Right femoral artery. CATHETERS USED: 5-Cam[place]onian JL4, JR4, and angled pigtail. TECHNIQUE: After intravenous sedation with Versed and morphine, local anesthesia with lidocaine was applied of right femoral artery. Arterial access was established placement of a 5-Cam[place]onian sheath in right femoral artery using modified Seldinger technique. Selective coronary angiography performed followed by left heart catheterization and left ventriculography. Upon completion of procedure arterial sheath was removed from right femoral artery and hemostasis facilitated with manual pressure. The patient tolerated procedure without apparent complications. FINDINGS: Hemodynamics: Aortic pressure 149/84 with a mean 112, left ventricle pressure 148/80, EBER of 15, on hemodynamics there is no significant gradient across aortic valve demonstrated on pullback for left ventricle. Angiography: 1. Left ventriculogram . The left ventricle of normal size without wall motion abnormality evident on GUERRA projection. Estimated left ejection fraction is 60%. There is no significant mitral regurgitation. 2. Left main coronary artery. The left main coronary artery is angiographically normal. 3. Left anterior descending coronary. The left anterior descending coronary and its branches are angiographically normal. 4. Left circumflex coronary. The left circumflex coronary artery and its branch are angiographically normal. ] 5. The dominant right coronary and its branches are angiographically normal. CONCLUSIONS: 1. Normal left ventricular systolic function without wall motion abnormality evident on GUERRA projection. 2. Right-dominant coronary anatomy with coronary arteries appearing angiographically normal. RECOMMENDATIONS: 1. Consider alternative etiologies for patient's chest symptoms as abnormal stress myocardial perfusion study appears to be false positive. 2. Continue efforts at coronary risk factor modification.
--- NOTE | 2016-08-12 02:33 | DISCHARGE SUMMARY ---
ADMISSION DATE: 08/07/2016 DISCHARGE DATE: 08/09/2016 CONSULTATIONS: Dr. Donato Coelho with Cardiology. PERTINENT PROCEDURES: Stress test. The patient did have chest discomfort during Lexiscan requiring 125 mg of aminophylline. Stress electrocardiogram was negative for ischemia. PVCs were noted. Myocardial perfusion imaging revealed moderate grade, moderate size reversible perfusion defect in the anterior wall and the apex, diagnostic of ischemia. EF 56%. DISCHARGE DIAGNOSES: 1. Atypical chest pain with a very abnormal stress test. Cardiology may consider pursuit of cardiac catheterization/coronary angiogram in the future. 2. Near syncope at home with frequent premature ventricular contractions at home. Patient was started on beta darrin. 3. Hypothyroidism. Continue with Synthroid. 4. Mnire's disease history. 5. Chronic leukocytosis. Patient follows with Dr. Loya. She is status post splenectomy. 6. Obstructive sleep apnea. HOSPITAL COURSE BRIEFLY: Ms. Murray is a 56-year-old female with history of frequent PVCs, Mnire's disease, obstructive sleep apnea, hypothyroidism, hypogammaglobulinemia, who states back at the end of May she had a bout of gastroenteritis and has pretty much felt bad ever since. This past Friday started having chest pain that radiated up into her left neck into her left scapula, associated diaphoresis, nausea, that lasted for about 45 minutes. She felt this was possibly from her hiatal hernia. Patient woke up Friday with a feeling of fullness and pain through the left side of her neck that never subsided. She took [place], which helped a little bit. She checked her pulse rate and noted it was anywhere from 35 to 175. Other complaint was left upper quadrant abdominal pain that she had had for about a week. Patient did have an abdominal CT yesterday. Her amylase and lipase were negative. She did complain of some lightheadedness with her head spinning and states that it feels different from her Mnire's disease. She did have frequent PVCs noted on her bedside telemetry. Cardiology was consulted. They did an echocardiogram as well as a stress test that was abnormal. They are maybe considering the pursuit of a cardiac catheterization/coronary angiogram. They did discuss future consideration to be given to bariatric surgery also with the patient. Patient is going to be followed up with Dr. Coelho with Cardiology in four to six weeks[address]. Blanco has assessed the patient and feels she is appropriate for discharge home today. Temperature is 97.7, heart rate 84, respirations 19, blood pressure 136/53. O2 is 95% on room air. DISCHARGE MEDICATIONS: 1. Synthroid 175 mcg p.o. daily. 2. Metaxall 800 mg p.o. daily. 3. Zofran ODT 4 mg p.o. q. eight hours p.r.n. 4. [place] one each p.o. b.i.d. 5. Aspirin 81 mg p.o. daily. 6. Clonazepam 0.5 mg p.o. b.i.d. 7. Desyrel 150 mg p.o. at bedtime. 8. Lipitor 40 mg p.o. at bedtime. 9. Dyazide one each p.o. daily. FOLLOWUP: Patient is being discharged home. She will follow up with Dr. Donato Coelho in four to six weeks as well as her primary care physician, Dr. Tyrel Rea, in 7 to 10 days. Patient can return to the ED for any worsening of symptoms. DISCHARGE TIME: 30 minutes. Dictated by VIVI Taveras for Mark Cain MD
== END 2016-08-09 15:45 | disposition home or self-care (01) | DRG 287 ==
LOC: ED 09:56 → 3N 09:57 → 3S 08-09 10:25
PROVIDERS: ATTEND Internal Medicine
PROC: 4A023N7 Measurement of Cardiac Sampling and Pressure, Left Heart, Percutaneous Approach (ICD-10-PCS; principal; 2016-08-08)
PROC: B2111ZZ Fluoroscopy of Multiple Coronary Arteries using Low Osmolar Contrast (ICD-10-PCS; 2016-08-08)
PROC: B2151ZZ Fluoroscopy of Left Heart using Low Osmolar Contrast (ICD-10-PCS; 2016-08-08)
DX: R07.89 Other chest pain (principal); D80.1 Nonfamilial hypogammaglobulinemia; Z68.42 Body mass index [BMI] 45.0-49.9, adult; H81.09 Meniere's disease, unspecified ear; E03.9 Hypothyroidism, unspecified; I49.3 Ventricular premature depolarization; G47.33 Obstructive sleep apnea (adult) (pediatric); I10 Essential (primary) hypertension; M79.7 Fibromyalgia; K44.9 Diaphragmatic hernia without obstruction or gangrene; Z90.81 Acquired absence of spleen; E66.01 Morbid (severe) obesity due to excess calories; K21.9 Gastro-esophageal reflux disease without esophagitis; Z83.3 Family history of diabetes mellitus; Z79.899 Other long term (current) drug therapy
CPT/HCPCS: 71020; 78452; 80053; 80061; 82150; 82550; 83036; 83690; 83721; 83735; 83880; 84439; 84443; 84484; 85025; 85379; 85610; 85730; 86141; 93005; 93010; 93017; 93458; 99283; A9500; C8929; J0280; J1644; J1650; J2250; J2270; J7030; Q9967; J0820

== ENCOUNTER 2018-12-09 09:09 | Observation (INO) ==
--- NOTE | 2018-12-09 09:51 | PROVIDER DOCUMENTATION ---
HPI-Cardiac General - General Chief Complaint: Palpitations Stated Complaint: HEART RACING Time Seen by Provider: 12/09/18 09:19 Source: patient Allergies/Adverse Reactions: Patient Allergies Allergy/AdvReac Type Severity Reaction Status Date / Time Sulfa (Sulfonamide Allergy Severe ANAPHYLAXIS Verified 08/07/16 11:36 Antibiotics) adhesive Allergy HIVES Verified 08/07/16 11:36 codeine Allergy halucinatio Verified 08/07/16 11:36 ns erythromycin base Allergy Unknown Verified 08/07/16 11:36 red dye Allergy Unknown Verified 08/07/16 11:36 iron dextran complex AdvReac Intermediate ITCHING Verified 08/07/16 11:36 [From Infed] Home Medications: Home Medication List Medication Instructions Recorded Confirmed Last Taken Type Levothyroxine [Synthroid] 175 microgm PO DAILY 06/05/12 08/07/16 09/19/15 History Triamterene/Hctz [Dyazide] 1 each PO DAILY 09/19/15 08/07/16 09/18/15 History Ondansetron [Zofran Odt] 4 mg PO Q8H PRN PRN #20 tab.rapdis 06/17/16 08/07/16 Unknown Rx Metaxalone [Metaxall] 800 mg PO DAILY 08/07/16 08/07/16 Unknown History ATORVAstatin [Lipitor] 40 mg PO QHS #90 tablet 08/09/16 Unknown Rx Aspirin 81 mg PO DAILY #0 chewtab 08/09/16 Unknown Rx Clonazepam 0.5 mg PO BID #60 tablet 08/09/16 Unknown Rx Hydrocodone/Acetaminophen [[place] 1 each PO BID PRN PRN #20 tablet 08/09/16 Unknown Rx 10-325 Tablet] Trazodone [Desyrel] 150 mg PO QHS #30 tablet 08/09/16 Unknown Rx - History of Present Illness-Cardiac Nature of Presenting Problem: Pt presented for her monthly Gammanex Past History - Adult - PAST MEDICAL HISTORY-ADULT Major Childhood Illnesses: reports: denies history Cardiovascular: reports: HTN Respiratory: reports: asthma Endocrine/Immune: reports: thyroid disorder - PRIOR SURGERIES/PROCEDURES Surgical/Procedure History: reports: cholecystectomy - IMMUNIZATION STATUS Childhood Immunizations: See Nurse Assessment Flu Vaccine: See Nurse Assessment Progress - PLAN OF CARE/RESULTS Progress/Plan/Lab Results: Vital Signs - 8 hr 12/09/18 09:31 Temperature 98.0 F Pulse Rate 97 H Respiratory Rate 18 Blood Pressure 155/78 O2 Sat by Pulse Oximetry 98 Orders Category Date Time Status Cardiac Monitoring DIRECTED Care 12/09/18 09:38 Active Saline Loc NOW Care 12/09/18 09:38 Active CHEST-2 VIEWS [RAD] Stat Exams 12/09/18 09:38 Ordered CBC WITH ELECTRONIC DIFF [HEME] Stat Lab 12/09/18 09:39 Ordered CK PROFILE [SP CHEM] Stat Lab 12/09/18 09:39 Ordered COMPREHENSIVE METABOLIC PANEL [CHEM] Stat Lab 12/09/18 09:39 Ordered FREE T4 Stat Lab 12/09/18 09:49 Uncollected PRO B-NATRIURETIC PEPTIDE Stat Lab 12/09/18 09:39 Ordered PROTIME WITH INR [COAG] Stat Lab 12/09/18 09:39 Ordered PTT [COAG] Stat Lab 12/09/18 09:39 Ordered TROPONIN T Stat Lab 12/09/18 09:39 Ordered TSH Stat Lab 12/09/18 09:49 Ordered CP/SOB/Palp >45 yrs of Age Stat Oth 12/09/18 09:38 Ordered EKG [EKG] Stat Ther 12/09/18 09:38 Ordered Result Diagrams: 12/09/18 09:30 Departure - Departure Referrals and Follow-Ups: Tyrel Rea MD [Primary Care Provider] -
--- NOTE | 2018-12-09 09:55 | Diag Imaging Result Doc PS360 ---
EXAM: CHEST-2 VIEWS 12/09/2018 HISTORY: palp TECHNIQUE: PA and lateral chest COMMENT: There are calcified granulomatous nodes in the right tracheobronchial and hilar region. There is no evidence of acute cardiac or pulmonary disease. Compared to 08/07/2016 there has been no significant change in the appearance of the chest. IMPRESSION: Granulomatous changes. No evidence of acute disease. Electronically signed by Caleb Kelley 12/09/2018 9:52 AM
[2018-12-09 10:05] LABS: BASO% 0.6 % (0.0-0.8); EOS# 0.78 X1000 (0.0-0.7); EOS% 4.9 % (0.0-10.0); HEMATOCRIT 47.7 % (37.0-47.0); HEMOGLOBIN 15.8 g/dL (12.0-16.0); IMM GRAN# 0.09 X1000 (0.0-0.04); IMM GRAN% 0.6 % (0.0-0.5); LYMPH# 4.66 X1000 (1.2-3.4); LYMPH% 29.1 % (20.5-51.1); MCH 31.1 PG (27-31); MCHC 33.1 g/dL (33-37); MCV 93.9 FL (81-99); MONO# 1.45 X1000 (0.11-0.59); MONO% 9.1 % (1.7-9.3); MPV 12.5 FL (7.4-10.4); NEUT# 8.92 X1000 (1.4-6.5); NEUT% 55.7 % (42.2-75.2); PLT 349 X1000 (130-400); RBC 5.08 XMIL (4.2-5.4); RDW 13.7 % (11.5-14.5)
[2018-12-09 10:14] LABS: INR 0.92; PROTIME 13.1 Seconds (11.0-16.0)
[2018-12-09 10:15] LABS: PTT 29.3 Seconds (22.3-41.8)
[2018-12-09 10:32] LABS: AGAP 14; ALB/GLOB RATIO 1.5; ALBUMIN 4.2 g/dL (3.5-5.0); ALKALINE PHOSPHATASE 125 U/L (32-104); BUN 12 mg/dL (8-22); CALCIUM 9.9 mg/dL (8.8-10.2); CHLORIDE 102 mmol/L (98-107); CK PROFILE 90 U/L (24-173); COSMO 288; CREATININE 0.7 mg/dL (0.5-0.9); ESTIMATED GFR > 60; GLUCOSE 153 mg/dL (70-104); GOT 26 U/L (10-30); GPT 19 U/L (10-36); POTASSIUM 4.2 mmol/L (3.5-5.1); SODIUM 143 mmol/L (136-145); TCO2 27 mmol/L (25-35); TOTAL BILIRUBIN 0.52 mg/dL (0.20-1.00)
--- NOTE | 2018-12-09 10:36 | EKG Report ---
Test Performed on : 12/09/2018 09:15:42 AM Test Reason : palpatations Blood Pressure : / mmHG Vent. Rate : 096 BPM Atrial Rate : 096 BPM P-R Int : 172 ms QRS Dur : 080 ms QT Int : 380 ms P-R-T Axes : 064 010 038 degrees QTc Int : 480 ms Sinus rhythm. with frequent premature ventricular complexes. Low voltage QRS Prolonged QT Abnormal ECG When compared with ECG of 09-AUG-2016 11:29, premature ventricular complexes. are now present Unconfirmed Result
--- NOTE | 2018-12-09 13:32 | PROVIDER DOCUMENTATION ---
This chart was entered by Yeni Wright Scribe, acting as scribe for Emerson Lunsford MD. HPI-Cardiac General - General Chief Complaint: Palpitations Stated Complaint: HEART RACING Time Seen by Provider: 12/09/18 09:19 Source: patient Allergies/Adverse Reactions: Patient Allergies Allergy/AdvReac Type Severity Reaction Status Date / Time Sulfa (Sulfonamide Allergy Severe ANAPHYLAXIS Verified 08/07/16 11:36 Antibiotics) adhesive Allergy HIVES Verified 08/07/16 11:36 codeine Allergy halucinatio Verified 08/07/16 11:36 ns erythromycin base Allergy Unknown Verified 08/07/16 11:36 red dye Allergy Unknown Verified 08/07/16 11:36 iron dextran complex AdvReac Intermediate ITCHING Verified 08/07/16 11:36 [From [facility]] Home Medications: Home Medication List Medication Instructions Recorded Confirmed Last Taken Type Ondansetron [Zofran Odt] 4 mg PO Q8H PRN PRN #20 tab.rapdis 06/17/16 12/09/18 Unknown Rx Clonazepam 0.5 mg PO BID #60 tablet 08/09/16 12/09/18 Unknown Rx Hydrocodone/Acetaminophen [[place] 1 each PO BID PRN PRN #20 tablet 08/09/16 12/09/18 Unknown Rx 10-325 Tablet] Trazodone [Desyrel] 150 mg PO QHS #30 tablet 08/09/16 12/09/18 Unknown Rx Levothyroxine [Synthroid] 200 microgm PO DAILY 12/09/18 12/09/18 Unknown History Venlafaxine E.r. [Effexor Xr] 37.5 mg PO Q3DAYS 12/09/18 12/09/18 Unknown History - History of Present Illness-Cardiac Nature of Presenting Problem: 58 yof presents to the ed with c/o intermittent palpitations, nausea, dizziness and posterior shoulder pain onset 2 days prior. pt sts had cardiac workup with dr weiss 2 years prior and came back normal range. pt has hx of arrhythmias. pt had episode this am with an episode of bradycardia/tachycardia episode this am but has improved since being in ed. pt denies chest pain with these episodes pt sts thyroid medication was changed to generic 1 week prior and is wondering if that would cause these episodes Quality of Pain: reports: none Severity in ED: moderate Onset/Duration: 2 days ago Timing: improving, intermittent Context/Activities at Onset: reports: light activity Modifying Factors: improves with: nothing Palpitation Quality: irregular History of arrythmia: reports: other (hx of arrhythmia) Nitro Today/Relief: reports: no nitro taken today Aspirin Treatment Today: reports: no aspirin today Prior Chest Pain/Cardiac Workup: reports: other (work up in the past with dr weiss) Associated Symptoms: reports: dizziness, nausea. denies: abdominal pain, back pain, fever/chills, headache, shortness of breath, vomiting Similar Symptoms Previously?: Yes (hx of arrthymia) Recently Seen Here or By Another Healthcare Provider: No Review of Systems - Adult - REVIEW OF SYSTEMS - ADULT Constitutional: denies: chills, fever Eyes: reports: no symptoms reported Ears, Nose, Mouth & Throat: reports: no symptoms reported Cardiovascular: reports: see HPI, irregular heart rate, palpitations. denies: chest pain, edema, syncope Respiratory: denies: shortness of breath, wheezing Gastrointestinal: reports: nausea. denies: abdominal pain, diarrhea, vomiting Genitourinary: reports: no symptoms reported Musculoskeletal: reports: see HPI, joint pain (posterior shoulder pain). denies: neck pain Integumentary: reports: no symptoms reported Neurological: reports: see HPI, dizziness/vertigo. denies: ataxia, headache/migraines, seizure, slurred speech, syncope, tremors Psychiatric: reports: no symptoms reported Endocrine: reports: no symptoms reported Hematologic/Lymphatic: reports: no symptoms reported Allergic/Immunologic: reports: no symptoms reported All Other Systems: Reviewed and Negative Past History - Adult - PAST MEDICAL HISTORY-ADULT Review of Records: reports: Old Records Reviewed, Nursing Assessment Review, Medications Reviewed, Social history reviewed & non-contributory. Major Childhood Illnesses: reports: denies history Cardiovascular: reports: arrhythmia, HTN, palpitations Respiratory: reports: asthma Gastrointestinal: reports: GERD Obstetrical/Gynecological: reports: denies history Genitourinary: reports: denies history Musculoskeletal: reports: denies history Hand Dominance: Right Handed Neurological: reports: denies history Psychiatric: reports: denies history Endocrine/Immune: reports: thyroid disorder (hypo) Other Conditions: reports: denies history - PRIOR SURGERIES/PROCEDURES Surgical/Procedure History: reports: cholecystectomy, other (spleenectomy) - IMMUNIZATION STATUS Childhood Immunizations: See Nurse Assessment Flu Vaccine: See Nurse Assessment - FAMILY HISTORY Family History: reviewed, not pertinent - SOCIAL HISTORY Smoking: denies Substance Use: alcohol Alcohol Use Frequency: occasionally Number of drinks per typical drinking period:: 3-4 drinks Living Situation: family Physical Exam-General - PHYSICAL EXAM-ADULT Initial Vital Signs Reviewed: Yes - CONSTITUTIONAL General Appearance: appears well, alert, no apparent distress - EYES Eyes: PERRL/EOMI, pink conjunctivae - HEAD, EARS, NOSE, MOUTH & THROAT HENMT: moist mucous membranes, normal ENT inspection - NECK Neck: non-tender, full range of motion, supple, normal inspection - RESPIRATORY Respiratory: chest non-tender, lungs clear, normal breath sounds - CARDIOVASCULAR Cardiovascular: normal peripheral pulses, other (irregular) - GASTROINTESTINAL (ABDOMEN) Abdominal Exam: normal bowel sounds, non tender, soft, hernia - MUSCULOSKELETAL Back Exam: normal inspection, no CVA tenderness, no vertebral tenderness Extremity: normal range of motion, non-tender, normal gait, normal inspection - SKIN Integumentary: normal color, normal turgor, warm/dry - NEUROLOGIC Neurologic: grossly normal, no motor/sensory deficits - PSYCHIATRIC Psych/Mental Status: normal mood/affect, normal thought content, normal thought process, oriented x 3 - HEART Score HEART Score: History: Slightly Suspicious HEART Score: ECG: Non-Specific Repolarization Disturbance/LBBB/PM HEART Score: Age: 45-65 Years HEART Score: Risk Factors for Atherosclerotic Disease: 1 or 2 Risk Factors HEART Score: Troponin: < or = Normal Limit Total HEART Score:: 3 Progress - PLAN OF CARE/RESULTS Progress/Plan/Lab Results: Vital Signs - 8 hr 12/09/18 09:24 12/09/18 09:30 12/09/18 09:31 Temperature 98.0 F Pulse Rate 93 H 92 H 90 Respiratory Rate 15 17 12 Blood Pressure 133/73 O2 Sat by Pulse Oximetry 97 98 98 12/09/18 09:40 12/09/18 09:54 12/09/18 10:00 Temperature Pulse Rate 99 H 89 90 Respiratory Rate 13 17 24 Blood Pressure O2 Sat by Pulse Oximetry 99 96 98 Laboratory Results - last 24 hr 12/09/18 12/09/18 12/09/18 09:30 09:30 09:30 WBC 16.00 H RBC 5.08 Hgb 15.8 Hct 47.7 H MCV 93.9 MCH 31.1 H MCHC 33.1 RDW Std Deviation 13.7 Plt Count 349 MPV 12.5 H Immature Gran % (Auto) 0.6 H Neut % (Auto) 55.7 Lymph % (Auto) 29.1 [place] % (Auto) 9.1 Eos % (Auto) 4.9 Baso % (Auto) 0.6 Immature Gran # (Auto) 0.09 H Neut # (Auto) 8.92 H Lymph # (Auto) 4.66 H [place] # (Auto) 1.45 H Eos # (Auto) 0.78 H Baso # (Auto) 0.10 PT INR PTT (Actin FS) Sodium 143 Potassium 4.2 Chloride 102 Carbon Dioxide 27 Anion Gap 14 BUN 12 Creatinine 0.7 Estimated GFR/1.73 m2 > 60 BUN/Creatinine Ratio 17 Glucose 153 H Calculated Osmolality 288 Calcium 9.9 Total Bilirubin 0.52 AST 26 ALT 19 Alkaline Phosphatase 125 H Creatine Kinase 90 Troponin T Cvu-[id number]-Dpnuxayzhvw Pept 58 Total Protein 7.0 Albumin 4.2 Globulin 2.8 Albumin/Globulin Ratio 1.5 TSH Free T4 12/09/18 12/09/18 12/09/18 09:30 09:30 09:30 WBC RBC Hgb Hct MCV MCH MCHC RDW Std Deviation Plt Count MPV Immature Gran % (Auto) Neut % (Auto) Lymph % (Auto) [place] % (Auto) Eos % (Auto) Baso % (Auto) Immature Gran # (Auto) Neut # (Auto) Lymph # (Auto) [place] # (Auto) Eos # (Auto) Baso # (Auto) PT 13.1 INR 0.92 PTT (Actin FS) 29.3 Sodium Potassium Chloride Carbon Dioxide Anion Gap BUN Creatinine Estimated GFR/1.73 m2 BUN/Creatinine Ratio Glucose Calculated Osmolality Calcium Total Bilirubin AST ALT Alkaline Phosphatase Creatine Kinase Troponin T < 0.010 Vdc-E-Sgrsdveslge Pept Total Protein Albumin Globulin Albumin/Globulin Ratio TSH 12.04 H Free T4 12/09/18 09:30 WBC RBC Hgb Hct MCV MCH MCHC RDW Std Deviation Plt Count MPV Immature Gran % (Auto) Neut % (Auto) Lymph % (Auto) [place] % (Auto) Eos % (Auto) Baso % (Auto) Immature Gran # (Auto) Neut # (Auto) Lymph # (Auto) [place] # (Auto) Eos # (Auto) Baso # (Auto) PT INR PTT (Actin FS) Sodium Potassium Chloride Carbon Dioxide Anion Gap BUN Creatinine Estimated GFR/1.73 m2 BUN/Creatinine Ratio Glucose Calculated Osmolality Calcium Total Bilirubin AST ALT Alkaline Phosphatase Creatine Kinase Troponin T Joy-I-Prpoizhpszm Pept Total Protein Albumin Globulin Albumin/Globulin Ratio TSH Free T4 1.17 Orders Category Date Time Status Cardiac Monitoring DIRECTED Care 12/09/18 09:38 Active Saline Loc NOW Care 12/09/18 09:38 Active Regular Diet Diet 12/09/18 12:29 Active CHEST-2 VIEWS [RAD] Stat Exams 12/09/18 09:38 Completed CBC WITH ELECTRONIC DIFF [HEME] Stat Lab 12/09/18 09:30 Completed CK PROFILE [SP CHEM] Stat Lab 12/09/18 09:30 Completed COMPREHENSIVE METABOLIC PANEL [CHEM] Stat Lab 12/09/18 09:30 Completed FREE T4 Stat Lab 12/09/18 09:30 Completed PRO B-NATRIURETIC PEPTIDE Stat Lab 12/09/18 09:30 Completed PROTIME WITH INR [COAG] Stat Lab 12/09/18 09:30 Completed PTT [COAG] Stat Lab 12/09/18 09:30 Completed TROPONIN T Stat Lab 12/09/18 09:30 Completed TSH Stat Lab 12/09/18 09:30 Completed CP/SOB/Palp >45 yrs of Age Stat Oth 12/09/18 09:38 Ordered EKG [EKG] Stat Ther 12/09/18 09:38 Draft Result Diagrams: 12/09/18 09:30 12/09/18 09:30 - REASSESSMENT Reassessment #1 Time Reassessed: 10:34 (pt is feeling much better) Status: improving Reassessment #2 Time Reassessed: 11:45 Status: unchanged (pt had one episode dizzya nd nausea here in eER. continues HR near 90/min with frequent PVCs/PACs, much trigeminy. pt states he has chronic leukocytosis w/ her immunodeciency) - EKG 1 Time of EKG reading by physician:: 09:15 EKG Read and Signed by:: Emerson Lunsford EKG Interpretation (*Must complete 3 of following elements*): Abnormal Rate: 96 Rhythm: sinus rhythm with frequent pvc [place]: normal QRS: PVC's, other (low voltage QRS and prolonged QT) [place] Interval: normal ST Wave: normal - XRAY 1 XRAY: Bilateral XRAY Study: Chest Impression: See EMR Report (EXAM: CHEST-2 VIEWS 12/09/2018 HISTORY: palp TECHNIQUE: PA and lateral chest COMMENT: There are calcified granulomatous nodes in the right tracheobronchial and hilar region. There is no evidence of a cute cardiac or pulmonary disease. Compared to 08/07/2016 there has been no significant change in the appearance of the chest. IMPRESSION: Granulomatous changes. No evidence of acute disease. Electronically signed by Caleb Kelley 12/09/2018 9:52 AM 12/09/18951 Interpreting Physician: Caleb Kidd MD Dictated Date/Time: 12/09/18951 cc: Emerson Lunsford MD; Tyrel Rea MD) - CONSULTS/PCP/HOSPITALIST Notification #1 *Consult/PCP/Hospitalist*: DR BYRD, formal service waiter Time Discussed: 11:45 #2 Consult: JAZMIN ARCE Time Discussed: 13:26 Consult Disposition: Admit Departure - Departure Date of Disposition Decision: 12/09/18 Time of Disposition Decision: 13:26 DIAGNOSIS: Palpitations, Joey-tachy syndrome, Dizzy Disposition: ADMITTED INPATIENT 09 Certified Medical Emergency: Emergent Condition: Stable Referrals and Follow-Ups: Tyrel Rea MD [Primary Care Provider] - - Critical Care Note This patient required my direct & personal management of CC.: No Attestation - Physician/ JOSE Attestation Patient care was provided by Advanced Practice Provider:: No The physician spent face to face time with patient:: Yes Advanced Practice Provider documentation review:: Supervising physician onsite and consulted in the evaluation and care of this patient. The physician did have a face to face encounter with the patient. This chart was documented by the indicated scribe, (Yeni Wright Scribe) and accurately reflects the services I performed and decisions made by me, Emerson Lunsford MD, as attested by the provider's signature.
--- NOTE | 2018-12-09 14:58 | HISTORY AND PHYSICAL ---
PRIMARY CARE PHYSICIAN: Dr. Tyrel Rea. BUSINESS PROJECT MANAGER: Dr. Loya. CHIEF COMPLAINT: Intermittent palpitations, nausea, dizziness, and a posterior shoulder pain for the past 2 days. She went to get her gammaglobulin injection for this month this morning at [facility] and was noted to have some bradycardia and then tachycardia prior to getting the infusion, so they did not give her the infusion and sent her to the emergency room. HISTORY OF PRESENTING ILLNESS: This is a 58-year-old female who presents to [facility] ER with complaints of intermittent palpitations, nausea, dizziness, and some posterior shoulder pain for the past 2 days. States that she has had frequent PVCs and intermittent palpitations for over a year now. 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 She went this morning to receive her gammaglobulin monthly infusion at [facility] and when they took her vital signs she states that initially her heart rate was 25. They rechecked the pulse and changed monitors and it stayed low and then went up into the 120s. They did not give her her gammaglobulin infusion and sent her to the emergency room for further evaluation and treatment. She has not had any episodes of bradycardia or tachycardia since arriving. Her pulse has remained in the upper 90s with her monitor showing frequent PVCs. EKG showed normal sinus rhythm at 96 with frequent PVCs. Chest x-ray showed no evidence of acute disease. 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 So, she will be admitted for further evaluation and treatment. PAST MEDICAL HISTORY: Frequent bigeminal PVCs, Meniere disease, obstructive sleep apnea, hypothyroidism, hypogammaglobulinemia, fibromyalgia, and chronic leukocytosis secondary to her splenectomy. PAST SURGICAL HISTORY: Splenectomy, bladder tack, left lymph node removal, cholecystectomy, and a torn meniscus that just recently happened and has a brace to her right knee. FAMILY HISTORY: Her mom has Andree's. Father has diabetes type 1. Her sister has lupus. SOCIAL HISTORY: She currently lives with family. Denies any tobacco, alcohol, or illicit drug use. ALLERGIES: Sulfa, adhesives, codeine, erythromycin base, red dye, and INFeD. HOME MEDICATIONS: She takes clonazepam 0.5 mg p.o. b.i.d., [place] 10 one p.o. b.i.d. p.r.n., Synthroid 200 mcg p.o. daily. We will hold her Zofran ODT 4 mg p.o. q.8 hours p.r.n. Desyrel 150 mg p.o. at bedtime, Effexor 37.5 mg p.o. q.3 days. LABORATORY DATA: Showed a white blood cell count of 16,000, hemoglobin 15.8, hematocrit 47.7, platelets 349,000. PT and INR of 13.1 and 0.92. Sodium of 143, potassium 4.2, chloride 102, CO2 of 27, BUN of 12, creatinine 0.7, glucose 153. Cardiac enzymes were negative. TSH of 12.4 with a free T4 of 1.17. Chest x-ray showed no evidence of acute disease. EKG showed normal sinus rhythm with frequent PVCs at 96. REVIEW OF SYSTEMS: She denied any fever, chills, blurred vision. She has had some dizziness, intermittent palpitations, nausea, and some posterior shoulder pain. Denied any abdominal pain, constipation, diarrhea, burning or hurting with urination. PHYSICAL EXAMINATION: GENERAL: On arrival she had a temperature of 98 degrees, pulse 93, respirations 15, blood pressure 155/78, saturating 98% on room air. GENERAL: This is a 58-year-old female who is lying in the bed and answers questions appropriately. HEENT: Normocephalic, atraumatic. Normal ENT inspection. Oropharynx and nares are clear. NECK: Normal inspection. Normal range of motion. LUNGS: Clear to auscultation bilaterally with equal lung expansion and chest wall movement. HEART: With regular rate and rhythm. No murmurs, rubs, or gallops. ABDOMEN: Soft, nontender, nondistended. Bowel sounds are present x4 quadrants. MUSCULOSKELETAL: She had 5/5 strength x4 extremities. NEUROLOGICAL: The cranial nerves 2-12 appear grossly intact. ASSESSMENT: 1. Palpitations. 2. Frequent premature ventricular contractions. 3. Fibromyalgia. 4. 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 PLAN: She will be admitted to [facility], placed on a regular diet, placed on telemetry. We will consult Cardiology. Do an echocardiogram. Continue her home medicines as previously identified. Further orders after seen by attending and by legal consultant. Dictated by VIVI Yo for Sim Beaulieu MD Addendum: Patient seen and examined by myself. Agree with VIVI note. It reflects my assessment and plan. Patient is being admitted to hospital for close monitoring because she was having some symptomatic arrhythmias. Will consult Cardiology and will go from there. cc: VIVI Yo MD Brian R. James, MD [facility]
[2018-12-09] MEDS ORDERED: TYLENOL PO PRN (15:16)
[2018-12-09] MEDS ORDERED: ZOFRAN IV PRN (15:16)
[2018-12-09] MEDS ORDERED: NORCO-10 PO PRN (15:16)
[2018-12-09] MEDS ORDERED: AMBIEN PO PRN (16:35)
--- NOTE | 2018-12-09 17:59 | CARDIOLOGY CONSULTATION ---
DATE: 12/09/2018 CHIEF COMPLAINT ON PRESENTATION: Nausea. HISTORY OF PRESENT ILLNESS: Ms. Murray is a 58-year-old female who has a history of hypogammaglobulinemia. She was presenting to [facility] for her usual gammaglobulin infusion. She took medications as usual and did not eat prior to the infusion, as per her usual habit. While seated in the chair getting her vitals she felt somewhat nauseous. She had widely erratic pulses. They seem like they were all pulse checks and not heart rate checks. It seems like they were all done via some sort of blood pressure machine or manual palpation of the pulse. The patient did not have any palpitations. She did not have any pain complaints at the time, just mainly nausea. She was referred to the ER for further evaluation. PAST MEDICAL HISTORY: 1. Significant for PVCs. 2. Meniere disease. 3. Obstructive sleep apnea. 4. Hypothyroidism. 5. Hypogammaglobulinemia. 6. Fibromyalgia. 7. History of chronic leukocytosis. SOCIAL HISTORY: She is . is present in the room. No alcohol, tobacco, or illicit drugs. She works for [employer]. FAMILY HISTORY: Mother has Andree. Father has type 1 diabetes. Her sister has lupus. REVIEW OF SYSTEMS: A 10 system review of systems is negative except for those things mentioned in the HPI. PHYSICAL EXAMINATION: Vital signs: Patient is afebrile. Her heart rate on presentation was 93 beats per minute. Most recent heart rates were in the high 80s to low 90s. Blood pressure 128/60. General: She is in no acute distress. HEENT: Oropharynx is moist. Normal dentition. Eye examination shows pink conjunctivae, white sclerae. Neck: Shows no obvious thyromegaly or thyroid tenderness. Cardiovascular: She sounds to be in a regular rate and rhythm. She has no obvious murmurs. She has no S3. She has no lower extremity edema. PVCs were identified on her telemetry during the exam. Chest: Exam sounded relatively clear but distant. No increased work of breathing. Abdomen: Soft, nontender, nondistended. She has no obvious organomegaly. Skin: Warm and dry throughout without any rashes. Neurological: Moving all extremities well. She has no lateralizing deficits. Psychiatric: She is alert, oriented, pleasant. She has normal mood and affect. PERTINENT DATA: Her chest x-ray shows granulomatous changes. No evidence of any acute findings. Her EKG shows sinus rhythm. She has trigeminal PVCs that appear to be unifocal. Heart rate of 96. [place] interval was normal. White count is 16 today and appears to be persistently elevated since at least 2012. Her hematocrit is 47, platelet count is 349,000. Her sodium is 143, potassium 4.2, BUN 12, creatinine 0.7. Her albumin level is 4.2. Cardiac enzymes are normal. ProBNP is normal. TSH is 12.04 with a free T4 of 1.17. ASSESSMENT: Ms. Murray is a 58-year-old female who presented with somewhat erratic pulse rates checked at the office with some nausea. PLAN: Her echocardiogram seems to show preserved ejection fraction. It is a very difficult quality study secondary to the patient's body habitus. She is not on any sort of rate controlling medications. We will observe her overnight in telemetry. If this is unremarkable, then she can likely be discharged home with a more extensive monitor for 1 to 2 weeks. We could consider beta- blockers to suppress her PVCs but at this point, they do not seem to be overtly symptomatic. cc: Huseyin Sweet MD
[2018-12-09] MEDS ORDERED: DESYREL PO SCH (21:00)
[2018-12-09] MEDS: KLONOPIN PO SCH (21:12)
[2018-12-10 05:21] LABS: BASO# 0.12 X1000 (0.0-0.2); BASO% 0.8 % (0.0-0.8); EOS# 1.02 X1000 (0.0-0.7); EOS% 6.5 % (0.0-10.0); HEMATOCRIT 45.3 % (37.0-47.0); HEMOGLOBIN 15.1 g/dL (12.0-16.0); IMM GRAN# 0.09 X1000 (0.0-0.04); IMM GRAN% 0.6 % (0.0-0.5); LYMPH% 32.7 % (20.5-51.1); MCH 31.5 PG (27-31); MCHC 33.3 g/dL (33-37); MCV 94.4 FL (81-99); MONO# 1.63 X1000 (0.11-0.59); MONO% 10.5 % (1.7-9.3); MPV 12.1 FL (7.4-10.4); NEUT# 7.62 X1000 (1.4-6.5); NEUT% 48.9 % (42.2-75.2); PLT 328 X1000 (130-400); RDW 13.9 % (11.5-14.5); WBC 15.58 X1000 (4.8-10.8)
[2018-12-10] MEDS: SYNTHROID PO SCH ×2 (05:50→06:03)
[2018-12-10 05:52] LABS: AGAP 13; BUN 10 mg/dL (8-22); CALCIUM 9.2 mg/dL (8.8-10.2); CHLORIDE 102 mmol/L (98-107); COSMO 281; CREATININE 0.6 mg/dL (0.5-0.9); ESTIMATED GFR > 60; GLUCOSE 120 mg/dL (70-104); POTASSIUM 3.6 mmol/L (3.5-5.1); SODIUM 141 mmol/L (136-145); TCO2 26 mmol/L (25-35)
--- NOTE | 2018-12-10 07:17 | EKG Report ---
Test Performed on : 12/10/2018 06:57:59 AM Test Reason : palpitations Blood Pressure : / mmHG Vent. Rate : 077 BPM Atrial Rate : 077 BPM P-R Int : 188 ms QRS Dur : 092 ms QT Int : 438 ms P-R-T Axes : 058 013 051 degrees QTc Int : 495 ms Normal sinus rhythm. Low voltage QRS Prolonged QT Abnormal ECG When compared with ECG of 09-DEC-2018 09:15, (Unconfirmed) premature ventricular complexes. are no longer present Unconfirmed Result
[2018-12-10] MEDS: KLONOPIN PO SCH (08:31)
--- NOTE | 2018-12-10 08:40 | ECHO REPORT ---
ORDER DATE: 12/09/2018 ECHOCARDIOGRAPHIC MEASUREMENTS: 1. Septal thickness 1.1. 2. Left ventricular internal diameter diastole 4.6. 3. Aortic root 3.1. 4. Left atrium 3.7. SUMMARY: 1. Technically difficult study due to limited acoustic window quality. Intravenous echo contrast agent Optison was utilized to enhance endocardial definition. 2. Aortic valve is without evidence of structural abnormality. Peak gradient across aortic valve is less than 5 mmHg. Mitral and tricuspid valves are without gross structural abnormality. Pulmonic valve is not seen. The aortic root is normal in size. 3. Normal left ventricular dimensions suggested on 2-dimensional images. Estimated left ventricular ejection fraction appears to be at least 55%. No regional wall motion abnormalities evident. Left atrium, right atrium, right ventricle are normal in size with normal right ventricular systolic function. 4. No pericardial effusion. 5. Appearance of inferior vena cava suggests normal central venous pressure. Right atrium, right ventricle are normal in size with grossly preserved right ventricular systolic function. 6. Inferior vena cava not well demonstrated. CONCLUSIONS: 1. Technically difficult study. 2. No significant valvular abnormality evident. 3. Estimated left ventricular ejection fraction at least 55%. cc: MD Vandana Emery CRNP
[2018-12-10] MEDS ORDERED: DYAZIDE PO SCH (09:00)
[2018-12-10 12:29] VITALS: BP 149/62
--- NOTE | 2018-12-10 15:22 | DISCHARGE SUMMARY ---
ADMISSION DATE: 12/09/2018 DISCHARGE DATE: 12/10/2018 PRIMARY CARE PHYSICIAN: Dr. Tyrel Rea. FAMILY AND DIVORCE LEGAL ASSISTANT: Dr. Loya. ADMISSION DIAGNOSES: 1. Palpitations. 2. Frequent PVCs. 3. Fibromyalgia. 4. 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 DISCHARGE DIAGNOSES: 1. Palpitations, resolved. 2. Frequent PVCs. 3. Fibromyalgia. 4. 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 CONSULTATIONS: With cardiology. SUMMARY OF FINDINGS: This is a 58-year-old female who presented to the ER after she had been having intermittent palpitations, nausea, dizziness, and some posterior shoulder pain for 2 days prior to arriving. She had gone to her drug safety scientist to have her monthly gammaglobulin infusion and vital signs prior to receiving the infusion showed her heart rate was 25. They got another machine and rechecked it and it remained low in the 30s and 40s. Rechecked it one more time and it had jumped up into the 120s and so they held off on her gammaglobulin infusion and sent her to the emergency room. She was found to have frequent PVCs, which she has had a history of. No evidence of any bradycardia or tachycardia. She has remained in the 80s and 90s. We obtained an echocardiogram that showed an ejection fraction of 55% with normal left ventricular dimensions. Cardiology was consulted and felt that we would monitor her overnight and could send her home with a monitor for more extensive monitoring for the next 1 to 2 weeks and they will set that up, and she can safely be discharged home. DISCHARGE MEDICATIONS: She will continue her home medications of clonazepam 0.5 mg p.o. b.i.d., zopiclone 3 mg p.o. at bedtime, Roosevelt 10 one p.o. b.i.d. p.r.n., Synthroid 200 mcg p.o. daily, triamterene/hydrochlorothiazide 37.5/25 one p.o. daily, Effexor XR 37.5 mg p.o. q. 3 days, and trazodone 150 mg p.o. at bedtime. FOLLOWUP: She will follow up with her primary care physician in the next 1 to 2 weeks and she will also be set up with Cardiology to get an event monitor to be monitored over a 2 week time period and they will set that up. TIME SPENT: 33 minute discharge. Dictated by VIVI Yo for Sim Beaulieu MD Addendum: Patient seen and examined by myself. Agree with VIVI note. It reflects my assessment and plan. Patient is being discharged in stable condition. Will be given a heart monitor and be seen by telescope operator after that. cc: VIVI Yo MD [facility]
[2018-12-12] MEDS ORDERED: EFFEXOR XR PO SCH (06:00)
== END 2018-12-10 14:45 | disposition home or self-care (01) ==
LOC: ED 09:09 → 3S 09:09
PROVIDERS: ATTEND Internal Medicine
CPT/HCPCS: 71020; 71046; 80048; 80053; 82550; 83880; 84439; 84443; 84484; 85025; 85610; 85730; 93005; 93306; A9270; C8929; Q9957